=== PATIENT | male | born 1990 | race Caucasian/White ===

== ENCOUNTER 2017-08-01 04:34 | Emergency (ER) | payer BC ==
[~2017-08-01] VITALS: Ht 180.3 cm; Wt 159.1 kg
[~2017-08-01 04:34] MED LIST: CELEXA40 M2 PO; CLEOCIN HCL300 M1 PO; CLINDAMYCIN HC300 M2 PO; FISH OIL 11000 MG/CA PO; FLEXERIL5 MG PO; IBUPROFEN200 M2 PO; LEXAPRO10 MG PO; LEXAPRO20 M2 PO; MULTIVITAMINS1 EAC6 PO; NORCO 5/325 TAB1 TAB PO; VIBRAMYCIN100 M1 PO
[2017-08-01 07:23] LABS: ANION GAP 10 mmol/L (0-20); BLOOD UREA NITROGEN 14 mg/dl (6-24); CALCIUM 9.4 mg/dl (8.5-10.5); CARBON DIOXIDE-VENOUS 25 mmol/L (22-32); CHLORIDE 103 mmol/l (96-110); CREATININE 1.01 mg/dl (0.60-1.30); GLUCOSE 105 mg/dL (70-110); SODIUM 133 mmol/L (135-145); eGFR VALUE FOR BLACK >90 mL/Min
[2017-08-01 07:29] LABS: POTASSIUM 4.9 mmol/L (3.7-5.1)
[2017-08-01 07:44] LABS: BASO % 0.5 % (0-2); EOS % 2.2 % (0-7); EOSINOPHIL ABSOLUTE COUNT 0.2 tho/cmm (0.0-0.7); HCT-HEMATOCRIT 42.7 % (36.0-53.5); HGB-HEMOGLOBIN 14.7 gm/dl (13.5-17.0); IMMATURE GRANULOCYTES ABSOLUTE 0.02 tho/cmm (0-0.03); IMMATURE GRANULOCYTES PERCENT 0.3 % (0-0.3); LYMPH % 21.1 % (20-45); LYMPH ABSOLUTE COUNT 1.5 tho/cmm (0.8-4.5); MCH (MEAN CORPUSCULAR HGB) 27.1 pg (28.0-32.0); MCHC MEAN CORPUSCULAR HGB CONC 34.4 % (32.0-36.0); MCV (MEAN CELL VOLUME) 78.6 fl (82.0-96.0); MEAN PLATELET VOLUME 9.6 cmc (9.4-12.4); MONO % 5.3 % (0-12); MONOCYTE ABSOLUTE COUNT 0.4 tho/cmm (0.0-1.2); NEUTROPHIL ABSOLUTE COUNT 5.2 tho/cmm (1.6-8.0); NEUTROPHIL-AUTOMATED 5.2 tho/cmm (1.6-8.0); NEUTROPHILS % 70.6 % (40-80); PLATELET COUNT 272 tho/cmm (150-450); RED BLOOD COUNT 5.43 mil/cmm (4.40-5.70); RED CELL DISTRIBUTION WIDTH 13.3 % (12.4-16.4); WHITE BLOOD COUNT 7.3 tho/cmm (4.0-10.0)
[2017-08-01] MEDS ORDERED: VIBRAMYCIN100 M1 PO (08:15)
== END 2017-08-01 08:41 ==
LOC: EDMED 04:34
PROVIDERS: Emergency Medicine
DX: J18.9 Pneumonia, unspecified organism (principal); F41.9 Anxiety disorder, unspecified; E11.9 Type 2 diabetes mellitus without complications; I10 Essential (primary) hypertension; Z87.891 Personal history of nicotine dependence; Z79.899 Other long term (current) drug therapy